=== PATIENT | female | born 1955 ===

== ENCOUNTER 2024-10-05 04:45 | Day surgery (SDC) | payer OTHER ==
[~2024-10-05 04:45] MED LIST: GABAPENTIN ER600 MG PO; METFORMIN HCL1000 MG; SINGULAIR10 MG PO; TRAMADOL HCL100 M1
[2024-10-05] MEDS ORDERED: LIDOCAINE HCL 1% 20 ML VIAL IJ ONE (09:33)
[2024-10-05] MEDS ORDERED: CEFAZOLIN SODIUM 1,000 MG VIAL ONE (09:33)
[2024-10-05] MEDS ORDERED: GENTAMICIN SULFATE 40 MG/ML VIAL ONE (09:41)
[2024-10-05] MEDS ORDERED: CEPHALEXIN250 M1 PO (10:26)
[2024-10-05] MEDS ORDERED: TRAM1TAB98 PO (10:26)
== END 2024-10-05 12:05 | disposition home or self-care (01) ==
LOC: CIR.AMB 04:45
PROVIDERS: ATTEND Obstetrics & Gynecology Gynecology
DX: N39.41 Urge incontinence (principal); N32.81 Overactive bladder; R15.9 Full incontinence of feces; R35.0 Frequency of micturition; Z88.2 Allergy status to sulfonamides
CPT/HCPCS: 64590; 95972; C1767